=== PATIENT | male | born 1990 | race Caucasian/White ===

== ENCOUNTER 2024-07-24 09:54 | Emergency (ER) | payer SELFPAY ==
[2024-07-24 09:57] VITALS: BP 150/86
[2024-07-24 10:00] VITALS: BMI 38.5
[2024-07-24 10:09] VITALS: BP 150/86
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
== END 2024-07-24 11:32 | disposition home or self-care (01) ==
LOC: EMR 09:54
PROVIDERS: EMERGENCY PHYSICIAN Emergency Medicine; FAMILY PHYSICIAN Family Medicine
DX: Z04.1 Encounter for examination and observation following transport accident (principal); V53.6XXA Passenger in pick-up truck or van injured in collision with car, pick-up truck or van in traffic accident, initial encounter; Y99.0 Civilian activity done for income or pay; E11.9 Type 2 diabetes mellitus without complications; I10 Essential (primary) hypertension; K21.9 Gastro-esophageal reflux disease without esophagitis
CPT/HCPCS: 99282